=== PATIENT | male | born 2005 | race African-American/Black ===

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

== ENCOUNTER 2024-06-15 19:08 | Emergency (ER) | payer OTHER, SELFPAY ==
[2024-06-15 19:50] LABS: Bilirubin Negative (Negative); Blood, Urine Small (Negative); Clarity Clear (Clear); Glucose, Urine (Dipstick) Negative (Negative); Ketone, Urine Negative (Negative); Leukocyte Negative (Negative); Nitrite Negative (Negative); Protein, Urine (Dipstick) Negative (Neg-Trace); Specific Gravity, Urine 1.025 (1.005-1.030); Urobilinogen 0.2 mg/dL (Less than 2)
[2024-06-15] MEDS ORDERED: Azithromycin 250 MG TAB ONE (20:14)
[2024-06-15] MEDS ORDERED: cefTRIAXone (ROCEPHIN) 250 MG VIAL ONE (20:14)
[2024-06-17 23:11] LABS: Chlam.trachomatis by PCR,Urine Not Detected (NotDetected); GC N.gonorrhoeae PCR,UrineVOID Not Detected (NotDetected)
== END 2024-06-15 20:33 | disposition home or self-care (01) ==
LOC: NAV ERS 19:08
DX: N34.2 Other urethritis (principal)
CPT/HCPCS: 81001; 87491; 87591; 96372; 99283; J0696